=== PATIENT | male | born 1980 | race Caucasian/White ===

== ENCOUNTER 2020-11-25 08:44 | Emergency (ER) | payer MEDICARE, MEDICAID ==
[2020-11-25] MEDS ORDERED: Famotidine 20 MG TAB ONE (09:22)
[2020-11-25] MEDS ORDERED: predniSONE 20 MG TAB ONE (09:22)
[2020-11-25] MEDS ORDERED: diphenhydrAMINE 25 MG CAP ONE (09:22)
== END 2020-11-25 09:43 | disposition home or self-care (01) ==
LOC: MADERS 08:44
DX: R21 Rash and other nonspecific skin eruption (principal); F17.220 Nicotine dependence, chewing tobacco, uncomplicated; Z85.6 Personal history of leukemia
CPT/HCPCS: 99282; J7512

== ENCOUNTER 2021-01-04 20:01 | Emergency (ER) | payer MEDICARE ==
[~2021-01-04 20:01] MED LIST: Iopamidol 370 76% 100 ML VIAL ONE
[2021-01-04 21:20] LABS: #Basophils 0.1 thou/uL (0.0-0.2); #Eosinphils 0.4 thou/uL (0.0-0.7); #Lymphocytes 1.8 thou/uL (1.20-3.40); #Monocytes 0.6 thou/uL (0.11-0.59); #Neutrophils 4.1 thou/uL (1.40-6.50); %Basophils 1.7 % (0.0-1.0); %Eosinophils 6.1 % (0.0-10.0); %Lymphocytes 25.6 % (21.0-51.0); %Monocytes 8.8 % (0.0-10.0); %Neutrophils 57.7 % (42.0-75.0); Hemoglobin 14.7 g/dL (14.0-18.0); Mean Corpuscular HGB CONC 34.3 g/dL (32.0-36.0); Mean Corpuscular Hemoglobin 35.1 pg (27.0-31.0); Mean Corpuscular Volume 102.3 fL (78.0-98.0); Mean Platelet Volume 8.2 fL (7.4-10.4); Platelet Count 266 thou/uL (130-400); Platelet Morphology Comment Appears Adequate; RBC Distribution Width 12.7 % (11.5-14.5); RBC Morphology Normal; Red Blood Cell (RBC) Count 4.18 mill/uL (4.70-6.10); White Blood Cell (WBC) Count 7.2 thou/uL (4.8-10.8)
[2021-01-04] MEDS ORDERED: Morphine 4 MG/ML VIAL ONE (21:33)
[2021-01-04] MEDS ORDERED: Sodium Chloride 0.9% 1,000 ML ONE (21:33)
[2021-01-04] MEDS ORDERED: Ondansetron PF 4 MG/2 ML Vial ONE (21:33)
[2021-01-04 21:58] LABS: ALT (SGPT) 29 U/L (8-55); AST (SGOT) 21 U/L (5-34); Albumin 3.6 g/dL (3.5-5.0); Alkaline Phosphatase 126 U/L (40-110); Anion Gap 13 mmol/L (10-20); BUN (Urea Nitrogen) 10 mg/dL (8.9-20.6); Bilirubin, Total 0.3 mg/dL (0.2-1.2); Calc. Creatinine Clearance 0 mL/min (70-130); Calcium 8.8 mg/dL (7.8-10.44); Carbon Dioxide 27 mmol/L (22-29); Chloride 105 mmol/L (98-107); Globulin 1.9 g/dL (2.4-3.5); Glucose 89 mg/dL (70-105); Lipase 41 U/L (8-78); Potassium 3.9 mmol/L (3.5-5.1); Protein, Total 5.5 g/dL (6.0-8.3); Sodium 141 mmol/L (136-145)
== END 2021-01-04 22:25 | disposition home or self-care (01) ==
LOC: MADERS 20:01
DX: N20.0 Calculus of kidney (principal); R19.7 Diarrhea, unspecified; F17.220 Nicotine dependence, chewing tobacco, uncomplicated
CPT/HCPCS: 71045; 74177; 80053; 83690; 85025; 96374; 96375; J2270; J2405; J7050; Q9967

== ENCOUNTER 2021-08-22 01:37 | Emergency (ER) | payer MEDICARE, MEDICAID ==
[2021-08-22] MEDS ORDERED: Iopamidol 370 76% 125 ML VIAL FS ONE (01:38)
[2021-08-22 03:22] LABS: INR-International Normal Ratio 0.9; Prothrombin Time 12.3 sec (12.0-14.7)
[2021-08-22 03:23] LABS: PTT 34.5 sec (22.9-36.1)
[2021-08-22 03:30] LABS: ALT (SGPT) 34 U/L (8-55); AST (SGOT) 24 U/L (5-34); Albumin 4.2 g/dL (3.5-5.0); Alkaline Phosphatase 124 U/L (40-110); Anion Gap 16 mmol/L (10-20); BUN (Urea Nitrogen) 12 mg/dL (8.9-20.6); Bilirubin, Total 0.4 mg/dL (0.2-1.2); Calc. Creatinine Clearance 0 mL/min (70-130); Calcium 9.1 mg/dL (7.8-10.44); Carbon Dioxide 29 mmol/L (22-29); Chloride 102 mmol/L (98-107); Glucose 104 mg/dL (70-105); Lipase 25 U/L (8-78); Protein, Total 6.2 g/dL (6.0-8.3); Sodium 143 mmol/L (136-145)
[2021-08-22 03:48] LABS: Band 7 % (5-11); Eosinophils 8 % (0-10); Lymphocytes 12 % (21-51); MDiff Complete? YES; Mean Corpuscular HGB CONC 33.8 g/dL (32.0-36.0); Mean Corpuscular Hemoglobin 33.5 pg (27.0-31.0); Mean Corpuscular Volume 98.9 fL (78.0-98.0); Mean Platelet Volume 7.3 fL (7.4-10.4); Monocytes 4 % (0-10); Neutrophil 66 % (42-75); Platelet Count 222 thou/uL (130-400); RBC Distribution Width 12.6 % (11.5-14.5); RBC Morphology Normal; Reactive Lymphocytes 2 % (0-10); Red Blood Cell (RBC) Count 5.09 mill/uL (4.70-6.10); SARS-CoV-2 NAA Rapid Test Not Detected (NotDetected); White Blood Cell (WBC) Count 8.6 thou/uL (4.8-10.8)
[2021-08-22 05:38] LABS: Bilirubin Negative (Negative); Blood, Urine Negative (Negative); Clarity Clear (Clear); Glucose, Urine (Dipstick) Negative (Negative); Ketone, Urine Negative (Negative); Leukocyte Negative (Negative); Nitrite Negative (Negative); Protein, Urine (Dipstick) Negative (Neg-Trace); Urobilinogen 0.2 mg/dL (Less than 2)
[2021-08-22 05:39] LABS: Specific Gravity, Urine Greater than 1.050 (1.002-1.036)
[2021-08-22] MEDS ORDERED: Sodium Chloride 0.9% 100 ML BAG ONE (06:15)
[2021-08-22] MEDS ORDERED: cefTRIAXone\\ROCEPHIN 1 GM VIAL ONE (06:52)
[2021-08-22] MEDS ORDERED: Azithromycin 500 MG VIAL ONE (06:52)
[2021-08-22] MEDS ORDERED: methylPREDNISolone Sod Succ/PF 125 MG/2 ML VIAL ONE (06:52)
[2021-08-22] MEDS ORDERED: Sodium Chloride 0.9% 250 ML 250 ML ONE (06:52)
== END 2021-08-22 08:18 | disposition short-term general hospital (02) ==
LOC: MADERS 01:37
DX: R04.2 Hemoptysis (principal); R09.02 Hypoxemia; J45.909 Unspecified asthma, uncomplicated; F17.220 Nicotine dependence, chewing tobacco, uncomplicated; Z20.822 Contact with and (suspected) exposure to COVID-19; Z79.899 Other long term (current) drug therapy
CPT/HCPCS: 0240U; 71045; 71275; 80053; 81003; 83605; 83690; 84484; 85025; 85610; 85730; 86850; 86900; 86901; 87040; 87086; 93005; 96365; 96375; 99285; J0456; J0696; J2930; J7050; J7620; Q9967

== ENCOUNTER 2024-11-29 02:33 | Emergency (ER) | payer MEDICARE ==
[2024-11-29] MEDS ORDERED: Ibuprofen 800 MG TAB ONE (03:06)
[2024-11-29] MEDS ORDERED: Cephalexin 500 MG CAP ONE (03:06)
[2024-11-29] MEDS ORDERED: Sulfameth/Trimethoprim DS 800-160mg TAB ONE (03:06)
== END 2024-11-29 03:19 | disposition home or self-care (01) ==
LOC: MADERS 02:33
DX: L03.115 Cellulitis of right lower limb (principal); Z86.718 Personal history of other venous thrombosis and embolism; F17.220 Nicotine dependence, chewing tobacco, uncomplicated
CPT/HCPCS: 99283